=== PATIENT | male | born 1955 | race Caucasian/White ===

== ENCOUNTER 2018-11-22 10:46 | Day surgery (SDC) | payer OTHER ==
[2018-11-18 12:34] VITALS: BMI 31.4
[2018-11-22 11:26] VITALS: RESP 16; TEMP 98.4
[2018-11-22] MEDS ORDERED: LACTATED RINGERS 1,000 ML IV ONE (11:28)
[2018-11-22] MEDS ORDERED: LIDOCAINE 1% 20 ML VIAL (10MG/ML) FOR IV START INTRADERMA ONE (11:29)
[2018-11-22] MEDS ORDERED: LIDOCAINE 1% INJ 10MG/ML (20 ML MDV) ONE (13:39)
[2018-11-22] MEDS ORDERED: PROPOFOL 10 MG/ML 20 ML VIAL IV ONE (13:39)
--- NOTE | 2018-11-22 14:08 | P.PCN ---
Date of Procedure: 11/22/18 Procedure(s) Performed: Procedure: Colonoscopy and polypectomy. Preoperative diagnosis: Screening for neoplasia. Postoperative diagnosis: 1. Small flat hepatic flexure polyp snared but no large polyps or cancer. 2. Sigmoid diverticulosis with no evidence of acute diverticulitis or strictures. Preparation: HalfLytely prep. Sedation: Was provided by anesthesia. Brief clinical history: The patient is a 63-year-old male who is scheduled for this evaluation for screening for neoplasia age being his risk factor. He had a prior exam around 10 years ago. The patient has no abdominal complaints, bleeding or anemia. Procedure: With the patient on his left lateral decubitus position and after informed consent and adequate sedation, the perianal area was inspected and it did not show any fissures or fistulas. There were no masses felt on digital rectal examination. The Olympus CFH 190L video colonoscope was then inserted in the rectum in the usual fashion and advanced to the cecum. There were a few diverticular orifices seen scattered in the sigmoid but I saw no evidence of acute diverticulitis or strictures. There was a flat small polyp around the hepatic flexure which I snared and retrieved by suction and there were no large polyps or cancer. I retroflexed endoscope in the rectum before the endoscope was withdrawn. The patient tolerated the procedure well. Plan: The patient was reassured. Discussed dietary measures. Depending on the pathology results, will consider repeat exam in 5 years. He will follow up with you as planned.
[2018-11-22 14:22] VITALS: BP 130/86; PULSE 62
== END 2018-11-22 14:36 | disposition home or self-care (01) ==
LOC: ORWHC2ENDO 10:46
DX: Z12.11 Encounter for screening for malignant neoplasm of colon (principal); K63.5 Polyp of colon; K57.30 Diverticulosis of large intestine without perforation or abscess without bleeding; I10 Essential (primary) hypertension; E78.5 Hyperlipidemia, unspecified; Z79.899 Other long term (current) drug therapy; Z79.2 Long term (current) use of antibiotics; Z79.1 Long term (current) use of non-steroidal anti-inflammatories (NSAID)
CPT/HCPCS: 88305; 45385; J2001; J2704

== ENCOUNTER → 2020-10-22 | Outpatient (CLI) | payer OTHER ==
[2020-10-22 11:27] LABS: Basophils % (A) 0 %; Eosinophils # (A) 0.3 k/uL (0-0.7); Eosinophils % (A) 4 %; HCT 46.8 % (39.0-53.0); HGB 15.1 gm/dL (13.0-17.5); Lymphocytes # (A) 2.4 k/uL (1.0-4.8); Lymphocytes % (A) 34 %; MCH 31.1 pg (25.0-35.0); MCHC 32.4 g/dL (31.0-37.0); Mean Platelet Volume 9.9; Monocytes # (A) 0.4 k/uL (0-1.0); Monocytes % (A) 5 %; Neutrophils # (A) 3.8 k/uL (1.3-7.7); Neutrophils % (A) 54 %; Platelet Count 251 k/uL (150-450); RBC 4.87 m/uL (4.30-5.90); RDW 12.6 % (11.5-15.5)
[2020-10-22 11:48] LABS: Prothrombin Time 10.1 sec (9.0-12.0)
[2020-10-22 11:49] LABS: Partial Thromboplastin Time 27.1 sec (22.0-30.0)
[2020-10-22 18:54] LABS: African American GFR (CKD) 91.8 (60.0-200.0); Albumin 4.7 g/dL (3.80-4.90); Albumin/Globulin Ratio 2.35 (1.60-3.17); Anion Gap 9.2 mmol/L (4.00-12.00); Calcium 10.2 mg/dL (8.7-10.3); Carbon Dioxide 23.8 mmol/L (21.6-31.8); Non-African American GFR(CKD) 79.2 (60.0-200.0); Potassium 5.3 mmol/L (3.5-5.5); Total Bilirubin 0.5 mg/dL (0.2-1.2); Total Protein 6.7 g/dL (6.2-8.2)
== END | disposition home or self-care (01) ==
LOC: LABWHC1 10:34
PROVIDERS: ATTEND Internal Medicine
DX: Z01.812 Encounter for preprocedural laboratory examination (principal); Z96.651 Presence of right artificial knee joint
CPT/HCPCS: 36415; 80053; 85025; 85610; 85730

== ENCOUNTER 2023-04-27 10:45 | Day surgery (SDC) | payer MEDICARE, OTHER ==
[2023-04-22 15:37] VITALS: BMI 34.5
[~2023-04-27 10:45] MED LIST: LACTATED RINGERS 1,000 ML IV SCH; LIDOCAINE 1% (10MG/ML) FOR IV START INTRADERMA PRN
[2023-04-27 11:36] VITALS: TEMP 97.6
[2023-04-27] MEDS ORDERED: PROPOFOL 10 MG/ML 20 ML VIAL IV ONE (12:06)
--- NOTE | 2023-04-27 12:21 | P.PCN ---
Date of Procedure: 04/27/23 Procedure(s) Performed: BRIEF HISTORY: Patient is a 67-year-old pleasant white male scheduled for an elective colonoscopy as a part of prior history of colon polyps. Last colonoscopy was 5 years ago. PROCEDURE PERFORMED: Colonoscopy with biopsy. PREOPERATIVE DIAGNOSIS: History of colon polyps. IV sedation per Anesthesia. PROCEDURE: After informed consent was obtained, the patient, was brought into the endoscopy unit. IV sedation was administered by Anesthesia under continuous monitoring. Digital rectal examination was normal. Initially the Olympus CF-160 flexible video colonoscope was then inserted in the rectum, gradually advanced into the cecum without any difficulty. Careful examination was performed as the scope was gradually being withdrawn. Ileocecal valve and the appendiceal orifice were visualized and appeared normal. Prep was excellent. Mucosa of the cecum, ascending colon, appeared normal. In the hepatic flexure there was a 3 mm polyp that was removed by cold biopsy. Rest of the transverse colon, descending colon, sigmoid colon, and rectum appeared normal. ; In the sigmoid There was a 3 mm polyp that was removed by cold biopsy. Retroflexion was performed in the rectum and no lesions were seen. The patient tolerated the procedure well. IMPRESSION: 3 mm hepatic flexure polyp status post cold biopsy 3 mm sigmoid colon polyp status post cold biopsy Scattered sigmoid diverticulosis.RECOMMENDATIONS: Findings of this examination were discussed with the patient as well as his family. He was advised to follow with the biopsy results and if the biopsy result adenoma he can have a repeat colonoscopy in 5 years
[2023-04-27 12:27] VITALS: RESP 16
[2023-04-27 12:40] VITALS: BP 125/84; PULSE 80
== END 2023-04-27 12:55 | disposition home or self-care (01) ==
LOC: ORWHC2ENDO 10:45
PROVIDERS: ATTEND Internal Medicine Gastroenterology
DX: Z12.11 Encounter for screening for malignant neoplasm of colon (principal); D12.5 Benign neoplasm of sigmoid colon; D12.3 Benign neoplasm of transverse colon; K57.30 Diverticulosis of large intestine without perforation or abscess without bleeding; I10 Essential (primary) hypertension; E78.5 Hyperlipidemia, unspecified; Z79.899 Other long term (current) drug therapy; Z86.010 Personal history of colon polyps
CPT/HCPCS: 88305; 45380; J2704

== ENCOUNTER → 2023-11-18 | Outpatient (CLI) | payer MEDICARE ==
--- NOTE | 2023-11-18 10:35 | NM ---
EXAMINATION TYPE: NM myocardial SPECT single DATE OF EXAM: 11/18/2023 COMPARISON: NONE CLINICAL INDICATION: Male, 68 years old with history of I25.10 coronary atherosclerosis; Following administration of 9.0 mCi Tc 99m Sestamibi. Images obtained 45 minutes post injection. FINDINGS: Diminished radiotracer uptake involving inferior left ventricular wall extending towards th e lateral wall is nonspecific. Calculated ejection fraction is 62% IMPRESSION: As above.
== END | disposition home or self-care (01) ==
LOC: RADNMMAIN 08:23
PROVIDERS: ATTEND Internal Medicine
DX: I25.10 Atherosclerotic heart disease of native coronary artery without angina pectoris (principal)
CPT/HCPCS: 78451; A9500

== ENCOUNTER → 2023-11-29 | Outpatient (CLI) | payer MEDICARE ==
--- NOTE | 2023-11-29 13:03 | CA ---
Exercise Nuclear Stress Test Report Name: Balwinder Fraire Exam Date: 11/29/2023 09:58 Exam Location: [facility] Stress Ht (in): Wt (lb): BSA: Ordering Phys: Larisa Ramesh MD Referring Phys: Larisa Ramesh MD Technologist: VICKI,, Age: 68 Gender: M : 1955 Procedure CPT: Indications: I25.10 coronary arteriosclerosis ICD-10 Codes: Patient History: ASCAD Medications: Meds past 24 hrs: Pretest Chest Pain: STRESS TEST Nakul Protocol Exercise Duration (min:sec): 07:[address] Depressions (mm): Angina Score: Walsh Score: Resting HR (bpm): 94 Peak HR (bpm): 137 Resting BP (mmHg): 149 / 102 Peak BP (mmHg): 200 / 85 MPHR: 153 Target HR: 130 % MPHR: 90 METS: 8.5 Total Dose: Peak Dose: Atropine: Double Product: 02907 BP Response: Stress Termination: Reached target heart rate Stress Symptoms: No chest pain or symptoms Stress Summary: ECG ANALYSIS Resting ECG: Normal sinus rhythm, heart rate 95 beats a minute, Stress ECG: No significant ST-T wave changes diagnostic for ischemia. No significant arrhythmias CONCLUSIONS Fair exercise tolerance for patient's age achieving 8.5 METS Normal hemodynamic response to exercise Nonischemic ECG response to exercise No reported chest pain with treadmill exercise Please refer to the nuclear portion of the stress test for complete interpretation of this study Dr Vin Woodall (Electronically Signed) Final Date: 29 November 2023 13:03
--- NOTE | 2023-11-29 15:08 | NM ---
EXAMINATION TYPE: NM stress cardiolite complete DATE OF EXAM: 11/29/2023 COMPARISON: 11/18/2023 HISTORY: The coronary arteriosclerosis TECHNIQUE: After the intravenous administration of 10.3 mCi Tc 99m Sestamibi - Cardiolite resting SP ECT images acquired 45 minutes post injection. At peak stress 25.1 mCi Tc 99m Sestamibi - Stress images obtained 35 minutes post injection The patient was stressed with 0.4mg Lexiscan. FINDINGS: There is a fixed defect along the inferior wall extending from the cardiac base to the cardiac apex. Small amount reversibility may be along the lateral portion of the cardiac apex. This may be an inter nixon change from 11/18/2023. Wall motion is normal Ejection fraction is calculated to be 77 %. IMPRESSION: 1. There appears to be some new ischemic change along the inferior wall at the cardiac apex extending into the lateral wall near the cardiac apex. This area is reversible and not present on the prior st udy. Some stress-induced ischemic change at this level should be considered. 2. Fixed defect along the inferior wall extending from the cardiac base.
== END | disposition home or self-care (01) ==
LOC: RADNMMAIN 07:48
PROVIDERS: ATTEND Internal Medicine
DX: I25.10 Atherosclerotic heart disease of native coronary artery without angina pectoris (principal)
CPT/HCPCS: 93017; 78452; A9500

== ENCOUNTER → 2025-01-22 | Outpatient (CLI) | payer MEDICARE ==
[2025-01-22 15:54] LABS: ALT 18 U/L (10-49); AST 21 U/L (14-35); Albumin 4.7 g/dL (3.8-4.9); Albumin/Globulin Ratio 1.96 Ratio (1.60-3.17); Alkaline Phosphatase 60 U/L (41-126); Blood Urea Nitrogen 15.2 mg/dL (9.0-27.0); Carbon Dioxide 25.8 mmol/L (21.6-31.8); Chloride 101 mmol/L (96-109); Chol/HDL Ratio 2.39 Ratio; Globulin 2.4 g/dL (1.6-3.3); Glucose 103 mg/dL (70-110); LDL Cholesterol,Calculated 42.9 mg/dL (0.0-131.0); Potassium 4.4 mmol/L (3.5-5.5); Prostate Specific Antigen 0.37 ng/mL (0.000-4.500); Sodium 137 mmol/L (135-145); Total Bilirubin 0.8 mg/dL (0.3-1.2); Total Protein 7.1 g/dL (6.2-8.2)
[2025-01-22 16:32] LABS: Basophils # (A) 0.03 X 10*3/uL (0.00-0.10); Basophils % (A) 0.4 %; Eosinophils # (A) 0.27 X 10*3/uL (0.04-0.35); Eosinophils % (A) 3.9 %; HCT 45.9 % (39.6-50.0); HGB 14.5 g/dL (13.0-17.0); Lymphocytes # (A) 2.14 X 10*3/uL (0.90-5.00); Lymphocytes % (A) 31.1 %; MCH 30.7 pg (27.0-32.0); MCHC 31.6 g/dL (32.0-37.0); Mean Platelet Volume 14.5 FL (9.5-12.2); Monocytes # (A) 0.65 X 10*3/uL (0.20-1.00); Monocytes % (A) 9.4 %; NRBC Per 100 WBC 0 X 10*3/uL (0.00-0.01); Neutrophils # (A) 3.78 X 10*3/uL (1.80-7.70); Neutrophils % (A) 54.9 %; Platelet Count 193 X 10*3/uL (140-440); RBC 4.73 X 10*6/uL (4.40-5.60); RDW 12.2 % (11.5-14.5); WBC 6.89 X 10*3/uL (4.50-10.00)
== END | disposition home or self-care (01) ==
LOC: LABWHC1 09:16
PROVIDERS: ATTEND Internal Medicine
DX: Z00.00 Encounter for general adult medical examination without abnormal findings (principal); I10 Essential (primary) hypertension; E78.2 Mixed hyperlipidemia; E55.9 Vitamin D deficiency, unspecified; N40.0 Benign prostatic hyperplasia without lower urinary tract symptoms; R73.01 Impaired fasting glucose
CPT/HCPCS: 36415; 80053; 80061; 82306; 83036; 84153; 84443; 85025; 86900; 86901; 87086